=== PATIENT | male | born 1955 | race Two or more races ===

== ENCOUNTER 2017-01-10 17:58 | Emergency (ER) | payer OTHER, BC ==
[2017-01-10 18:15] VITALS: BP 120/68; PULSE 93; TEMP 99.7; BMI 26.6
[2017-01-10] MEDS ORDERED: LEVOFLOXACIN 500 MG TABLET (FP) PO ONE (19:48)
--- NOTE | 2017-01-10 19:48 | PDOC ---
History of Present Illness - General History Source: Patient Exam Limitations: No Limitations - History of Present Illness Initial Comments: 01/10/17 19:49 The patient is a 61 year old male with a significant past medical history of hypertension and GERD, who presents to the ER with a blocked suprapubic catheter since this morning. Patient states he has a suprapubic catheter on a 16 inch macdonald. He noticed the catheter was clogged today and he began to release brown urine from his urethra. Denies any associated pain Denies dysuria, hematuria Denies fever, chills, cough Denies weakness or numbness in the lower extremities Urologist: Dr. Solo Beaver [phone] <Hanny Campos - Last Filed: 01/10/17 19:48> - General History Source: Patient <HenrikCarlos Eduardo gtz - Last Filed: 01/10/17 19:52> - General Chief Complaint: Urinary Catheter Problem Stated Complaint: URINARY CATHATER PROBLEM Time Seen by Provider: 01/10/17 19:48 Past History <Hanny Campos - Last Filed: 01/10/17 19:48> - Past Medical History Anemia: No Asthma: No Cancer: No Cardiac Disorders: No CVA: No COPD: No CHF: No Dementia: No Diabetes: Yes GI Disorders: Yes (GASTRIC REFLUX) Disorders: Yes HTN: Yes Hypercholesterolemia: No Liver Disease: No Seizures: Yes Thyroid Disease: No - Surgical History Lung Surgery: Yes (B/L LUNG.) - Immunization History Immunization Up to Date: Yes - Psycho/Social/Smoking Cessation Hx Anxiety: No Suicidal Ideation: No Smoking Status: No Smoking History: Former smoker Have you smoked in the past 12 months: Yes Number of Cigarettes Smoked Daily: 0 If you are a former smoker, when did you quit?: 22yrs Information on smoking cessation initiated: No Hx Alcohol Use: No Drug/Substance Use Hx: No Substance Use Type: None Hx Substance Use Treatment: No <Carlos Eduardo Martinez - Last Filed: 01/10/17 19:52> - Past Medical History Allergies/Adverse Reactions: Allergies Allergy/AdvReac Type Severity Reaction Status Date / Time No Known Allergies Allergy Verified 01/10/17 18:00 Home Medications: Ambulatory Orders Levofloxacin [Levaquin -] 500 mg PO DAILY #7 tablet 01/10/17 Review of Systems - Review of Systems Able to Perform ROS?: Yes Comments:: 01/10/17 19:49 CONSTITUTIONAL: Absent: fever, no chills, no fatigue EYES: Absent: visual changes ENT: Absent: ear pain, no sore throat CARDIOVASCULAR: Absent: chest pain, no palpitations RESPIRATORY: Absent: cough, no SOB GI: Absent: abdominal pain, no nausea, no vomiting, no constipation, no diarrhea GENITOURINARY: Present: (+) clogged suprapubic catheter with accompanied brown urine Absent: dysuria, no frequency, no hematuria MUSCULOSKELETAL: Absent: back pain, no arthralgia, no myalgia SKIN: Absent: rash NEURO: Absent: headache <Uts,Hanny - Last Filed: 01/10/17 19:48> *Physical Exam - Vital Signs Last Vital Signs Temp Pulse Resp BP Pulse Ox 99.7 F H 93 H 18 120/68 97 01/10/17 18:01 01/10/17 18:01 01/10/17 18:01/10/17 18:01/10/17 18:01 - Physical Exam Comments: 01/10/17 19:49 GENERAL: Well-appearing, well-nourished. No apparent distress. HEENT: Normocephalic, atraumatic. PERRL, EOM intact. CARDIOVASCULAR: Normal S1, S2. Regular rate and rhythm. PULMONARY: Clear to auscultation bilaterally. ABDOMEN: Suprapubic wound site. No erythema, no discharge, nontender. Catheter in place. Connected to leg bag, which currently has 150 cc of malodorous dark brown urine. Soft, non-distended, non-tender. EXTREMITIES: Normal ROM in all four extremities. No gross deformities. SKIN: Warm, dry. No rash NEUROLOGICAL: No focal neurological deficits. <Uts,Hanny - Last Filed: 01/10/17 19:48> - Vital Signs Last Vital Signs Temp Pulse Resp BP Pulse Ox 99.7 F H 93 H 18 120/68 97 01/10/17 18:01 01/10/17 18:01 01/10/17 18:01 01/10/17 18:01 01/10/17 18:01 <Carlos Eduardo Martinez - Last Filed: 01/10/17 19:52> Medical Decision Making - Medical Decision Making 01/10/17 19:50 16 vietnamese macdonald catheter replaced into suprapubic wound site without complication. Cloudy urine draining from catheter. Will cover with PO antibiotic and prescription will be transmitted to patient pharmacy <Hanny Campos - Last Filed: 01/10/17 19:48> - Medical Decision Making 01/10/17 19:52 Dr. Martinez: The scribe's documentation has been prepared under my direction and personally reviewed by me in its entirery. I confirm that the note above accurately reflects all work, treatment, procedures, and medical decision making performed by me. <Carlos Eduardo Martinez - Last Filed: 01/10/17 19:52> *DC/Admit/Observation/Transfer - Attestations Scribe Attestion: 01/10/17 19:50 Documentation prepared by Hanny Campos, acting as medical office manager for Carlos Eduardo Martinez DO. <Hanny Campos - Last Filed: 01/10/17 19:48> - Discharge Dispostion Admit: No <Carlos Eduardo Martinez - Last Filed: 01/10/17 19:52> Diagnosis at time of Disposition: Macdonald catheter problem Qualifiers: Encounter type: initial encounter Qualified Code(s): T83.9XXA - Unspecified complication of genitourinary prosthetic device, implant and graft, initial encounter - Discharge Dispostion Disposition: HOME Condition at time of disposition: Stable - Prescriptions Prescriptions: Levofloxacin [Levaquin -] 500 mg PO DAILY #7 tablet - Referrals Referrals: Zara Nath MD [Primary Care Provider] - - Patient Instructions Printed Discharge Instructions: How to Care for a Suprapubic Catheter
[2017-01-10] MEDS ORDERED: LEVOFLOXACIN 500 MG TABLET (FP) ONE (19:58)
== END 2017-01-10 20:09 | disposition home or self-care (01) ==
LOC: JER 17:58
PROC: 0T2BX0Z Change Drainage Device in Bladder, External Approach (ICD-10-PCS; principal; 2017-01-10)
DX: T83.090A Other mechanical complication of cystostomy catheter, initial encounter (principal); Y83.8 Other surgical procedures as the cause of abnormal reaction of the patient, or of later complication, without mention of misadventure at the time of the procedure; Y92.89 Other specified places as the place of occurrence of the external cause; I10 Essential (primary) hypertension; E11.9 Type 2 diabetes mellitus without complications; Z79.84 Long term (current) use of oral hypoglycemic drugs; G40.909 Epilepsy, unspecified, not intractable, without status epilepticus
CPT/HCPCS: 99282-25

== ENCOUNTER 2017-04-26 17:29 | Emergency (ER) | payer OTHER, BC ==
[2017-04-26 17:45] VITALS: BP 122/71; PULSE 68; TEMP 98.4; BMI 25.7
[2017-04-26 19:00] LABS: URINE APPEARANCE CLEAR; URINE BILIRUBIN NEGATIVE (NEGATIVE); URINE BLOOD 3+ (NEGATIVE); URINE COLOR STRAW; URINE GLUCOSE (UA) NEGATIVE (NEGATIVE); URINE KETONE NEGATIVE (NEGATIVE); URINE NITRITE NEGATIVE (NEGATIVE); URINE PROTEIN NEGATIVE (NEGATIVE); URINE UROBILINOGEN NEGATIVE mg/dL (0.2-1.0)
[2017-04-26 19:02] LABS: URINE LEUK ESTERASE 1+ (NEGATIVE)
--- NOTE | 2017-04-26 19:10 | PDOC ---
Attending Attestation - Resident Resident Name: SahniCt - ED Attending Attestation I have performed the following: I have examined & evaluated the patient, The case was reviewed & discussed with the resident, I agree w/resident's findings & plan, Exceptions are as noted - HPI HPI: 61 yo M history paraplegia, chronic suprapubic catheter presents with brown, cloudy discharge from the catheter. The last time this happened, the catheter had to be changed, then his symptoms improved. He denies pain, but states he cannot feel pain due to his injuries, and does not know when he has an infection unless he gets a fever. Denies fever, vomiting. - Physicial Exam PE: GENERAL: Awake, alert, and fully oriented, in no acute distress HEAD: No signs of trauma EYES: PERRLA, EOMI, sclera anicteric, conjunctiva clear ENT: Auricles normal inspection, hearing grossly normal, nares patent, oropharynx clear without exudates. Moist mucosa NECK: Normal ROM, supple, no lymphadenopathy, JVD, or masses LUNGS: Breath sounds equal, clear to auscultation bilaterally. No wheezes, and no crackles HEART: Regular rate and rhythm, normal S1 and S2, no murmurs, rubs or gallops ABDOMEN: Soft, nontender, normoactive bowel sounds. No guarding, no rebound. No masses. +Suprapubic catheter with clean site. EXTREMITIES: Bilateral upper extremities with normal range of motion, no edema. No clubbing or cyanosis. No cords, erythema, or tenderness. Lower limbs with absent motor function/paraplegic. NEUROLOGICAL: Cranial nerves II through XII grossly intact. Normal speech. + Paraplegia. No sensation below the chest. SKIN: Warm, Dry, normal turgor, no rashes or lesions noted. - Medical Decision Making Chart reviewed, patient with prior similar symptoms. Catheter was changed in ED , with clear light yellow urine in the bag afterwards. Site with no signs of infection. UA reviewed, 9 WBCs, but no LE/nitrites. Will not treat, will await UCx, as I suspect patient is colonized. Stable for DC home.
--- NOTE | 2017-04-26 19:14 | PDOC ---
History of Present Illness - General Chief Complaint: Hematuria Stated Complaint: CATHETER PROBLEM Time Seen by Provider: 04/26/17 17:55 History Source: Patient Exam Limitations: No Limitations - History of Present Illness Initial Comments: 61yo M with PMH of paralysis below level T6, dm, htn, presents c/o hematuria in suprapubic macdonald catheter. Pt noticed red blood in catheter this morning prompting him to come to the ER. Pt's at bedside. No associated pain. Pt does take Xarelto. Pt was here in January for similar complaint, which was resolved by changing the suprapubic macdonald. 04/26/17 20:19 Associated Symptoms: denies: chest pain, cough, diaphoresis, fever/chills, headaches, nausea/vomiting, rash, shortness of breath, syncope Past History - Past Medical History Allergies/Adverse Reactions: Allergies Allergy/AdvReac Type Severity Reaction Status Date / Time No Known Allergies Allergy Verified 04/26/17 17:41 Home Medications: Ambulatory Orders Alendronate Sodium [Binosto] 70 mg PO DAILY 01/10/17 Ascorbate Calcium [Vitamin C] 500 mg PO DAILY 01/10/17 Baclofen 10 mg PO BID 01/10/17 Bisacodyl [Gentle Laxative] 5 mg PO DAILY 01/10/17 Duloxetine HCl 60 mg PO DAILY 01/10/17 Famotidine [Pepcid -] 40 mg PO DAILY 01/10/17 Fentanyl 1 each TD DAILY 01/10/17 Levothyroxine [Synthroid -] 75 mcg PO DAILY 01/10/17 Metformin HCl [Metformin HCl ER] 500 mg PO DAILY 01/10/17 Multivit-Min/FA/Lycopen/Lutein [Centrum Silver Tablet] 1 each PO DAILY 01/10/17 Naloxegol Oxalate [Movantik] 25 mg PO DAILY 01/10/17 Pregabalin [Lyrica -] 75 mg PO BID 01/10/17 Rivaroxaban [Xarelto -] 20 mg PO DAILY 01/10/17 Anemia: No Asthma: No Cancer: No Cardiac Disorders: No CVA: No COPD: No CHF: No Dementia: No Diabetes: Yes GI Disorders: Yes (GASTRIC REFLUX) Disorders: Yes HTN: Yes Hypercholesterolemia: No Liver Disease: No Thyroid Disease: No - Surgical History Lung Surgery: Yes (B/L LUNG.) Other Surgical History: benign bladder tumor removal raysa placed in back after work accident in 201304/26/17 20:24 - Immunization History Immunization Up to Date: Yes - Psycho/Social/Smoking Cessation Hx Anxiety: No Suicidal Ideation: No Smoking Status: No Smoking History: Former smoker Have you smoked in the past 12 months: Yes Number of Cigarettes Smoked Daily: 0 If you are a former smoker, when did you quit?: 22yrs Information on smoking cessation initiated: No Hx Alcohol Use: No Drug/Substance Use Hx: No Substance Use Type: None Hx Substance Use Treatment: No Review of Systems - Review of Systems Able to Perform ROS?: Yes Is the patient limited Amharic proficient: No Constitutional: No: Chills, Diaphoresis, Fever HEENTM: No: Recent change in vision, Ear Pain, Nose Pain, Throat Pain Respiratory: No: Cough, Shortness of Breath, Stridor, Wheezing, Hemoptysis Cardiac (ROS): No: Chest Pain, Edema, Irregular Heart Rate, Lightheadedness, Palpitations, Syncope, Chest Tightness ABD/GI: No: Abdominal Distended, Constipated, Diarrhea, Nausea, Rectal Bleeding , Vomiting : Yes: Hematuria Integumentary: No: Bruising, Erythema, Lesions Neurological: Yes: Numbness, Paresthesia, Pre-Existing Deficit. No: Headache, Seizure *Physical Exam - Vital Signs Last Vital Signs Temp Pulse Resp BP Pulse Ox 98.4 F 68 19 122/71 95 04/26/17 17:41 04/26/17 17:41 04/26/17 17:41 04/26/17 17:41 04/26/17 17:41 - Physical Exam General Appearance: Yes: Nourished, Appropriately Dressed. No: Apparent Distress HEENT: positive: EOMI, Normal Voice, Other (moist mucous membranes). negative: Pale Conjunctivae, Scleral Icterus (R), Scleral Icterus (L), Nasal Congestion, Rhinorrhea Neck: positive: Trachea midline, Supple Respiratory/Chest: positive: Lungs Clear, Normal Breath Sounds. negative: Respiratory Distress, Accessory Muscle Use Cardiovascular: positive: Regular Rhythm, Regular Rate, S1, S2. negative: Murmur Gastrointestinal/Abdominal: positive: Soft. negative: Distended Extremity: positive: Normal Inspection Integumentary: positive: Normal Color, Dry, Warm Neurologic: positive: Fully Oriented, Alert, Normal Mood/Affect, Normal Response , Motor Strength 5/5 (above level T6) ED Treatment Course - ADDITIONAL ORDERS Additional order review: Laboratory Results 04/26/17 18:50 Urine Color Straw Urine Appearance Clear Urine pH 6.0 Urine Protein Negative Urine Glucose (UA) Negative Urine Ketones Negative Urine Blood 3+ H Urine Nitrite Negative Urine Bilirubin Negative Urine Urobilinogen Negative Medical Decision Making - Medical Decision Making 61yo M with PMH of paralysis below level T6, dm, htn, presents c/o hematuria in suprapubic macdonald. Pt is s/p work-related accident in 2013 resulting in paralysis below level T6 and chronic suprapubic macdonald. Pt was here in January for similar complaints. Hematuria resolved after suprapubic macdonald was replaced. Pt suspects macdonald is now clogged, like last time. Pt requests referral for new Urologist. UA -> (-) for UTI, +3 blood, WBC 9 urine culture suprapubic macdonald replaced by nsg -> clear urine draining in macdonald contact information for 2 Urology offices provided Pt can go home. 04/26/17 20:30 *DC/Admit/Observation/Transfer Diagnosis at time of Disposition: Hematuria, Obstructed Macdonald catheter - Discharge Dispostion Disposition: HOME Condition at time of disposition: Improved Admit: No - Referrals Referrals: Zara Nath MD [Primary Care Provider] - Fadi Ortiz MD [Staff Physician] - - Patient Instructions Printed Discharge Instructions: How to Care for a Suprapubic Catheter Additional Instructions: Please follow-up with your Primary Care Doctor and a Urologist within the next week. Please return to the hospital if persistent hematuria is noted, or if symptoms of infection develop such as fever, chills, sweating, shortness of breath.
[2017-04-26 19:31] LABS: URINE BACTERIA FEW /hpf (NONE SEEN); URINE RBC <1 /hpf (0-3); URINE WBC 9 /hpf (3-5)
== END 2017-04-26 20:10 | disposition home or self-care (01) ==
LOC: JER 17:29
PROC: 0T2BX0Z Change Drainage Device in Bladder, External Approach (ICD-10-PCS; principal; 2017-04-26)
DX: T83.098A Other mechanical complication of other urinary catheter, initial encounter (principal); I10 Essential (primary) hypertension; E11.9 Type 2 diabetes mellitus without complications; Z79.84 Long term (current) use of oral hypoglycemic drugs; E03.9 Hypothyroidism, unspecified; G82.21 Paraplegia, complete; S24.152S Other incomplete lesion at T2-T6 level of thoracic spinal cord, sequela; X58.XXXS Exposure to other specified factors, sequela
CPT/HCPCS: 81003; 81015; 87086; 87186; 99281-25

== ENCOUNTER 2017-10-21 11:02 | Emergency (ER) | payer BC, OTHER ==
[2017-10-21 11:14] VITALS: BMI 27.4
[2017-10-21] MEDS ORDERED: SODIUM CHLORIDE 1,000 ML IV STA (12:09)
[2017-10-21 12:40] LABS: EOS % 2.3 % (0-4.5); HEMATOCRIT 35.1 % (35.4-49); HEMOGLOBIN 11.5 GM/dL (11.7-16.9); LYMPH % 20.6 % (8-40); MCH 23.2 pg (25.7-33.7); MCHC 32.8 g/dl (32.0-35.9); MEAN CELL VOLUME 70.8 fl (80-96); MEAN PLT VOLUME 9.5 fl (7.5-11.1); MONO % 10.1 % (3.8-10.2); PLATELET COUNT 230 K/MM3 (134-434); RBC 4.96 M/mm3 (4.00-5.60); RDW 15.9 % (11.9-15.9); VENOUS PC02 55.5 mmHg (38-52); VENOUS PH 7.35 (7.32-7.42); WHITE BLOOD COUNT 7.2 K/mm3 (4.0-10.0)
[2017-10-21 12:41] LABS: VENOUS PO2 22.9 mmHg (28-48)
[2017-10-21 12:55] LABS: URINE APPEARANCE SL CLOUDY; URINE BILIRUBIN 1+ (NEGATIVE); URINE BLOOD 1+ (NEGATIVE); URINE GLUCOSE (UA) NEGATIVE (NEGATIVE); URINE KETONE TRACE (NEGATIVE)
[2017-10-21 12:57] LABS: URINE COLOR YELLOW; URINE LEUK ESTERASE 2+ (NEGATIVE); URINE NITRITE POSITIVE (NEGATIVE); URINE PROTEIN 2+ (NEGATIVE)
[2017-10-21 13:04] LABS: ALBUMIN 2.7 g/dl (3.4-5.0); ALK PHOS 63 U/L (45-117); ANION GAP 10 (8-16); BILIRUBIN,TOTAL 0.5 mg/dL (0.2-1.0); BLOOD UREA NITROGEN 6 mg/dL (7-18); CALCIUM 8.5 mg/dL (8.5-10.1); CHLORIDE 101 mmol/L (98-107); CO2 28 mmol/L (21-32); CREATININE 0.5 mg/dL (0.7-1.3); GLUCOSE,RANDOM 197 mg/dL (74-106); SGOT/AST 21 U/L (15-37); SGPT/ALT 31 U/L (12-78); SODIUM 139 mmol/L (136-145); TOT PROT 6.5 g/dl (6.4-8.2)
[2017-10-21 13:05] LABS: INR 1.74 (0.82-1.09); PROTHROMBIN TIME (PATIENT) 19.7 SEC (9.98-11.88)
[2017-10-21 13:07] LABS: ACTIVATED PTT 62.4 SECONDS (26.9-34.4)
[2017-10-21 13:33] LABS: EPI CELLS FEW /HPF (FEW)
[2017-10-21 13:34] LABS: URINE BACTERIA MANY /hpf (NONE SEEN)
--- NOTE | 2017-10-21 14:26 | PDOC ---
History of Present Illness <Blayne Carroll - Last Filed: 10/21/17 15:50> - History of Present Illness Initial Comments: 10/21/17 14:21 "The patient is a 62 year old male with a significant PMH of paralysis below T6 spine (c/b neurogenic bladder s/p suprapubic catheter), diabetes, HTN, and GERD who presents to the emergency department for evaluation of white discharge from suprapubic catheter insertion site. The patient notes that he had his catheter changed about 6 days ago by his urologist. Since then, he noticed oozing around the suprapubic catheter insertion site. He also notes occasional leakage of urine from his penis and a sensation that his abdomen is "full". Pt denies any abdominal pain. Denies F/C. Denies constipation, denies N/V. The patient denies chest pain, shortness of breath, headache and dizziness. Denies fevers, chills, nausea, vomit, diarrhea, and constipation. Allergies: NKA Past surgical history: Bilateral lung surgery. Social history: Former smoker (quit 22 yrs. ago). No reported alcohol or drug use. Urologist: Dr. Solo Beaver (in [place]) " <Tj Mckeon - Last Filed: 10/25/17 00:25> - General Chief Complaint: Urinary Catheter Problem Stated Complaint: URINARY PROBLEM Time Seen by Provider: 10/21/17 11:22 Past History <Blayne Carroll - Last Filed: 10/21/17 15:50> - Past Medical History Anemia: No Asthma: No Cancer: No Cardiac Disorders: No CVA: No COPD: No CHF: No Dementia: No Diabetes: Yes GI Disorders: Yes (GASTRIC REFLUX) Disorders: Yes (incontinent, chronic macdonald) HTN: Yes Hypercholesterolemia: No Liver Disease: No Seizures: Yes Thyroid Disease: No - Surgical History Lung Surgery: Yes (B/L LUNG.) - Immunization History Immunization Up to Date: Yes - Suicide/Smoking/Psychosocial Hx Smoking Status: No Smoking History: Former smoker Have you smoked in the past 12 months: Yes Number of Cigarettes Smoked Daily: 0 If you are a former smoker, when did you quit?: 22yrs Information on smoking cessation initiated: No Hx Alcohol Use: No Drug/Substance Use Hx: No Substance Use Type: None Hx Substance Use Treatment: No <Tj Mckeon - Last Filed: 10/25/17 00:25> - Past Medical History Allergies/Adverse Reactions: Allergies Allergy/AdvReac Type Severity Reaction Status Date / Time No Known Allergies Allergy Verified 10/21/17 11:09 Home Medications: Ambulatory Orders Alendronate Sodium [Binosto] 70 mg PO SA 01/10/17 Ascorbate Calcium [Vitamin C] 500 mg PO DAILY 01/10/17 Baclofen 10 mg PO BID 01/10/17 Bisacodyl [Gentle Laxative] 5 mg PO DAILY PRN 01/10/17 Duloxetine HCl 60 mg PO DAILY 01/10/17 Famotidine [Pepcid -] 40 mg PO DAILY 01/10/17 Fentanyl 1 each TD DAILY 01/10/17 Levothyroxine [Synthroid -] 75 mcg PO DAILY 01/10/17 Metformin HCl [Metformin HCl ER] 500 mg PO DAILY 01/10/17 Multivit-Min/FA/Lycopen/Lutein [Centrum Silver Tablet] 1 each PO DAILY 01/10/17 Naloxegol Oxalate [Movantik] 25 mg PO DAILY 01/10/17 Pregabalin [Lyrica -] 75 mg PO TID 01/10/17 Rivaroxaban [Xarelto -] 20 mg PO DAILY 01/10/17 Nitrofurantoin Monohyd/M-Cryst [Macrobid -] 100 mg PO BID #14 capsule 10/21/17 Review of Systems - Review of Systems Comments:: 10/21/17 14:26 "GENERAL/CONSTITUTIONAL: No fever or chills. No weakness. HEAD, EYES, EARS, NOSE AND THROAT: No change in vision. No ear pain or discharge. No sore throat. CARDIOVASCULAR: No chest pain or shortness of breath. RESPIRATORY: No cough, wheezing, or hemoptysis. GASTROINTESTINAL: No nausea, vomiting, diarrhea or constipation. GENITOURINARY: (+) white discharge from suprapubic catheter insertion site. No dysuria, frequency, or change in urination. MUSCULOSKELETAL: No joint or muscle swelling or pain. No neck or back pain. SKIN: No rash NEUROLOGIC: No headache, vertigo, loss of consciousness, or change in strength/ sensation. ENDOCRINE: No increased thirst. No abnormal weight change. HEMATOLOGIC/LYMPHATIC: No anemia, easy bleeding, or history of blood clots. ALLERGIC/IMMUNOLOGIC: No hives or skin allergy. " <Tj Mckeon - Last Filed: 10/25/17 00:25> *Physical Exam - Vital Signs Last Vital Signs Temp Pulse Resp BP Pulse Ox 98 F 113 H 19 101/57 96 10/21/17 11:09 10/21/17 11:09 10/21/17 11:09 10/21/17 11:09 10/21/17 11:09 <Blayne Carroll - Last Filed: 10/21/17 15:50> - Vital Signs Last Vital Signs Temp Pulse Resp BP Pulse Ox 98 F 113 H 19 101/57 96 10/21/17 11:09 10/21/17 11:09 10/21/17 11:09 10/21/17 11:09 10/21/17 11:09 - Physical Exam Comments: 10/21/17 14:26 "GENERAL: Awake, alert, and fully oriented, in no acute distress HEAD: No signs of trauma EYES: PERRLA, EOMI, sclera anicteric, conjunctiva clear ENT: Auricles normal inspection, hearing grossly normal, nares patent, oropharynx clear without exudates. Moist mucosa NECK: Nontender, no stepoffs, Normal ROM, supple, no lymphadenopathy, JVD, or masses LUNGS: Breath sounds equal, clear to auscultation bilaterally. No wheezes, and no crackles HEART: Regular rate and rhythm, normal S1 and S2, no murmurs, rubs or gallops ABDOMEN: + Suprapubic cath in place with purulent drainage from insertion site, no surrounding erythema, no fluctuance or induration, abdomen soft, nontender, normoactive bowel sounds. No guarding, no rebound. No masses EXTREMITIES: Normal range of motion, no edema. No clubbing or cyanosis. No cords , erythema, or tenderness NEUROLOGICAL: Cranial nerves II through XII intact. 5/5 strength and sensation in all extremities, Normal speech, normal gait, normal cerebellar function SKIN: Warm, Dry, normal turgor, no rashes or lesions noted. " <Tj Mckeon - Last Filed: 10/25/17 00:25> ED Treatment Course - LABORATORY CBC & Chemistry Diagram: 10/21/17 12:31 10/21/17 12:31 - ADDITIONAL ORDERS Additional order review: Laboratory Results 10/21/17 10/21/17 10/21/17 12:31 12:31 12:31 PT with INR INR PTT (Actin FS) VBG pH POC VBG pCO2 POC VBG pO2 Mixed VBG HCO3 Sodium 139 Potassium 4.0 Chloride 101 Carbon Dioxide 28 Anion Gap 10 BUN 6 L D Creatinine 0.5 L Creat Clearance w eGFR > 60 Random Glucose 197 H D Lactic Acid 1.1 Calcium 8.5 Total Bilirubin 0.5 D AST 21 D ALT 31 Alkaline Phosphatase 63 Troponin I < 0.02 Total Protein 6.5 Albumin 2.7 L Urine Color Urine Appearance Urine pH Ur Specific Mead Urine Protein Urine Glucose (UA) Urine Ketones Urine Blood Urine Nitrite Urine Bilirubin Urine Urobilinogen Ur Leukocyte Esterase Urine WBC (Auto) Urine RBC (Auto) Ur Epithelial Cells Urine Bacteria 10/21/17 10/21/17 10/21/17 12:31 12:31 12:31 PT with INR 19.70 H INR 1.74 H PTT (Actin FS) 62.4 H D VBG pH 7.35 POC VBG pCO2 55.5 H POC VBG pO2 22.9 L Mixed VBG HCO3 29.6 H Sodium Potassium Chloride Carbon Dioxide Anion Gap BUN Creatinine Creat Clearance w eGFR Random Glucose Lactic Acid Calcium Total Bilirubin AST ALT Alkaline Phosphatase Troponin I Total Protein Albumin Urine Color Yellow Urine Appearance Sl cloudy Urine pH 6.0 Ur Specific Mead 1.025 Urine Protein 2+ H Urine Glucose (UA) Negative Urine Ketones Trace H Urine Blood 1+ H Urine Nitrite Positive Urine Bilirubin 1+ H Urine Urobilinogen 1.0 Ur Leukocyte Esterase 2+ H Urine WBC (Auto) 5-10 Urine RBC (Auto) 0-2 Ur Epithelial Cells Few Urine Bacteria Many 10/21/17 12:31 RBC 4.96 MCV 70.8 L MCHC 32.8 RDW 15.9 D MPV 9.5 Neutrophils % 66.0 Lymphocytes % 20.6 D Monocytes % 10.1 Eosinophils % 2.3 Basophils % 1.0 - Medications Given in the ED: ED Medications Discontinued Medications Generic Name Dose Route Start Last Admin Trade Name Freq PRN Reason Stop Dose Admin Sodium Chloride 1,000 mls @ 1,000 mls/hr 10/21/17 12:09 10/21/17 12:30 Normal Saline - IV 10/21/17 13:08 1,000 mls/hr ASDIR STA Administration <Blayne Carroll - Last Filed: 10/21/17 15:50> - LABORATORY CBC & Chemistry Diagram: 10/21/17 12:31 10/21/17 12:31 - ADDITIONAL ORDERS Additional order review: Laboratory Results 10/21/17 10/21/17 10/21/17 12:31 12:31 12:31 PT with INR INR PTT (Actin FS) VBG pH POC VBG pCO2 POC VBG pO2 Mixed VBG HCO3 Sodium 139 Potassium 4.0 Chloride 101 Carbon Dioxide 28 Anion Gap 10 BUN 6 L D Creatinine 0.5 L Creat Clearance w eGFR > 60 Random Glucose 197 H D Lactic Acid 1.1 Calcium 8.5 Total Bilirubin 0.5 D AST 21 D ALT 31 Alkaline Phosphatase 63 Troponin I < 0.02 Total Protein 6.5 Albumin 2.7 L Urine Color Urine Appearance Urine pH Ur Specific Mead Urine Protein Urine Glucose (UA) Urine Ketones Urine Blood Urine Nitrite Urine Bilirubin Urine Urobilinogen Ur Leukocyte Esterase Urine WBC (Auto) Urine RBC (Auto) Ur Epithelial Cells Urine Bacteria 10/21/17 10/21/17 10/21/17 12:31 12:31 12:31 PT with INR 19.70 H INR 1.74 H PTT (Actin FS) 62.4 H D VBG pH 7.35 POC VBG pCO2 55.5 H POC VBG pO2 22.9 L Mixed VBG HCO3 29.6 H Sodium Potassium Chloride Carbon Dioxide Anion Gap BUN Creatinine Creat Clearance w eGFR Random Glucose Lactic Acid Calcium Total Bilirubin AST ALT Alkaline Phosphatase Troponin I Total Protein Albumin Urine Color Yellow Urine Appearance Sl cloudy Urine pH 6.0 Ur Specific Mead 1.025 Urine Protein 2+ H Urine Glucose (UA) Negative Urine Ketones Trace H Urine Blood 1+ H Urine Nitrite Positive Urine Bilirubin 1+ H Urine Urobilinogen 1.0 Ur Leukocyte Esterase 2+ H Urine WBC (Auto) 5-10 Urine RBC (Auto) 0-2 Ur Epithelial Cells Few Urine Bacteria Many 10/21/17 12:31 RBC 4.96 MCV 70.8 L MCHC 32.8 RDW 15.9 D MPV 9.5 Neutrophils % 66.0 Lymphocytes % 20.6 D Monocytes % 10.1 Eosinophils % 2.3 Basophils % 1.0 - RADIOLOGY Radiology Studies Ordered: Category Date Time Status ABDOMEN & PELVIS CT WITH CONTR [CT] Stat CT Scan 10/21/17 14:08 Ordered ABDOMEN [id number] [RAD] Stat Radiology 10/21/17 12:08 Taken CHEST X-RAY PORTABLE* [RAD] Stat Radiology 10/21/17 12:05 Completed KIDNEY / RENAL US [US] Stat Ultrasound 10/21/17 12:07 Ordered PELVIC / BLADDER US [US] Stat Ultrasound 10/21/17 12:07 Ordered - Medications Given in the ED: ED Medications Discontinued Medications Generic Name Dose Route Start Last Admin Trade Name [place] PRN Reason Stop Dose Admin Sodium Chloride 1,000 mls @ 1,000 mls/hr 10/21/17 12:09 10/21/17 12:30 Normal Saline - IV 10/21/17 13:08 1,000 mls/hr ASDIR STA Administration <Ou,Tj - Last Filed: 10/25/17 00:25> Medical Decision Making - Medical Decision Making 10/21/17 14:27 62 M with neurogenic bladder s/p suprapubic cath presenting to ED with 6 days of purulent drainage from cath insertion site. Pt with no infectious symptoms otherwise. Pt also complaining of urine leakage from penis and "fullness" of abdomen. Will evaluate for urinary retention, though suprapubic cath is draining freely in ER. - Labs, UA, UCx - Bladder/renal US - CT abdomen/pelvis with IV contrast to r/o abdominal wall abscess 10/21/17 17:50 CT with no evidence of abdominal wall infection. Possible cystitis. Bladder and renal US wnl, no hydronephrosis. Pt reassessed - catheter continues to drain clear yellow urine. Labs unremarkable. Given CT finding of perivesical fat stranding, will tx for cystitis. Based on prior cultures, pt has grown klebsiella and e coli, both sensitive to macrobid. Will DC with macrobid and instructions to f/u with urology. I discussed the physical exam findings, ancillary test results and final diagnoses with the patient. I answered all of the patient's questions. The patient was satisfied with the care received and felt comfortable with the discharge plan and treatment plan. The patient agrees to follow up with the primary care physician within 24-72 hours. <Ou,Tj - Last Filed: 10/25/17 00:25> *DC/Admit/Observation/Transfer - Attestations Scribe Attestion: 10/21/17 15:50 Documentation prepared by Blayne Carroll, acting as medical billing manager for Tj Mckeon MD. <Blayne Carroll - Last Filed: 10/21/17 15:50> - Attestations Physician Attestion: 10/21/17 17:53 I, Dr. Tj Mckeon MD, attest that this document has been prepared under my direction and personally reviewed by me in its entirety. I further attest, that it accurately reflects all work, treatment, procedures and medical decision -making performed by me. <Tj Mckeon - Last Filed: 10/25/17 00:25> Diagnosis at time of Disposition: Cystitis - Discharge Dispostion Disposition: HOME - Prescriptions Prescriptions: Nitrofurantoin Monohyd/M-Cryst [Macrobid -] 100 mg PO BID #14 capsule - Referrals Referrals: Griselda Jones MD [Primary Care Provider] - - Patient Instructions Printed Discharge Instructions: DI for Acute Cystitis Additional Instructions: Take the antibiotics as prescribed to treat your urine infection. If you experience fevers, foul smelling urine, clogged catheter, or any other concerning symptoms, return to the ER immediately. Otherwise, follow up with your urologist within 48 hours. - Post Discharge Activity
--- NOTE | 2017-10-21 15:48 | EKG ---
Test Reason : Blood Pressure : / mmHG Vent. Rate : 088 BPM Atrial Rate : 088 BPM P-R Int : 152 ms QRS Dur : 076 ms QT Int : 322 ms P-R-T Axes : 062 -56 028 degrees QTc Int : 389 ms NORMAL SINUS RHYTHM LEFT AXIS DEVIATION LOW VOLTAGE QRS INFERIOR INFARCT , AGE UNDETERMINED ABNORMAL ECG WHEN COMPARED WITH ECG OF 29-MAR-2015 18:44, NONSPECIFIC T WAVE ABNORMALITY NOW EVIDENT IN ANTEROLATERAL LEADS Confirmed by GREGORIO CORNELL MD ([id number]) on 10/21/2017 3:47:53 PM Referred By: Confirmed By:GREGORIO CORNELL MD
[2017-10-21] MEDS ORDERED: NITROFURANTOIN MACROCRYSTAL 50 MG CAPSULE (FP) PO SCH (18:00)
[2017-10-21 18:04] VITALS: BP 141/75; PULSE 53; TEMP 98.9
[2017-10-21] MEDS ORDERED: NITROFURANTOIN MACROCRYSTAL 50 MG CAPSULE (FP) ONE (18:07)
== END 2017-10-21 18:34 | disposition home or self-care (01) ==
LOC: JER 11:02
PROC: 3E0337Z Introduction of Electrolytic and Water Balance Substance into Peripheral Vein, Percutaneous Approach (ICD-10-PCS; principal; 2017-10-21)
DX: N30.00 Acute cystitis without hematuria (principal); I10 Essential (primary) hypertension; E11.9 Type 2 diabetes mellitus without complications; Z79.84 Long term (current) use of oral hypoglycemic drugs; K21.9 Gastro-esophageal reflux disease without esophagitis; G81.90 Hemiplegia, unspecified affecting unspecified side
CPT/HCPCS: 36415; 71045-TC-FY; 74021-TC-FY; 74177-TC; 76775-TC; 76856-TC; 80053; 81003; 81015; 82803; 83605; 84484; 85025; 85610; 85730; 87040; 87086; 87186; 93005; 93010; 99283-25; J7030

== ENCOUNTER 2024-01-30 08:55 | Inpatient (IN) | payer BC, OTHER ==
[2024-01-30 09:06] VITALS: BMI 27.4
[2024-01-30] MEDS ORDERED: PIPERACILLIN/TAZOB 4.5 GM 4.5 GM/100 ML BAG IVPB ONE (10:01)
[2024-01-30 10:04] LABS: BASO % 0.8 % (0-2.0); EOS % 2.1 % (0-4.5); HEMATOCRIT 34.3 % (35.4-49); HEMOGLOBIN 11.1 GM/dL (11.7-16.9); LYMPH % 25.8 % (8-40); MCH 23.1 pg (25.7-33.7); MCHC 32.3 g/dl (32.0-35.9); MEAN CELL VOLUME 71.4 fl (80-96); MONO % 9.5 % (3.8-10.2); NEUT % 61.8 % (42.8-82.8); PLATELET COUNT 410 10^3/uL (134-434); RDW 15.6 % (11.9-15.9); WHITE BLOOD COUNT 7.8 K/mm3 (4.0-10.0)
[2024-01-30 10:09] LABS: INR 2.27 (0.83-1.09); PROTHROMBIN TIME (PATIENT) 25.5 SEC (9.7-13.0)
[2024-01-30] MEDS: PIPERACILLIN/TAZOB 4.5 GM 4.5 GM in DEXTROSE 5%-WATER 100 ML IVPB ONE (10:10)
[2024-01-30 10:12] LABS: ACTIVATED PTT 105.1 SECONDS (25.2-36.5)
[2024-01-30 10:20] LABS: POTASSIUM 4.2 mmol/L (3.5-5.1)
[2024-01-30 10:22] LABS: BLOOD UREA NITROGEN 9.7 mg/dL (7-18)
[2024-01-30 10:26] LABS: CREATININE 0.5 mg/dL (0.55-1.3)
[2024-01-30 10:27] LABS: BILIRUBIN,TOTAL 0.5 mg/dL (0.2-1)
[2024-01-30 10:28] LABS: TOT PROT 6.9 g/dl (6.4-8.2)
[2024-01-30] MEDS ORDERED: VANCOMYCIN 1 GRAM (PRE-DOCKED) 1,000 MG/250 ML BAG IVPB ONE (12:15)
[2024-01-30] MEDS: VANCOMYCIN 1,000 MG in DEXTROSE 5%-WATER - 250 ML IVPB ONE (12:20)
[2024-01-30] MEDS: PIPERACILLIN/TAZOB 3.375 GM 3.375 GM in DEXTROSE 5%-WATER - 50 ML IVPB SCH (17:15)
[2024-01-31] MEDS ORDERED: PIPERACILLIN/TAZOBACTAM 3.375 GM VIAL IVPB ONE (00:54)
[2024-01-31] MEDS: LEVOTHYROXINE NA 50 MCG TABLET (FP) PO SCH (06:28)
[2024-01-31] MEDS ORDERED: LEVOTHYROXINE NA 75 MCG TABLET (FP) PO SCH (07:00)
[2024-01-31 10:06] LABS: BASO % 1.2 % (0-2.0); EOS % 2.4 % (0-4.5); HEMATOCRIT 34.4 % (35.4-49); HEMOGLOBIN 10.9 GM/dL (11.7-16.9); LYMPH % 26.6 % (8-40); MCH 22.8 pg (25.7-33.7); MCHC 31.7 g/dl (32.0-35.9); MEAN CELL VOLUME 71.8 fl (80-96); MEAN PLT VOLUME 8.2 fl (7.5-11.1); MONO % 8.7 % (3.8-10.2); NEUT % 61.1 % (42.8-82.8); PLATELET COUNT 388 10^3/uL (134-434); RBC 4.79 M/mm3 (4.00-5.60); RDW 15.2 % (11.9-15.9); WHITE BLOOD COUNT 7.7 K/mm3 (4.0-10.0)
[2024-01-31 10:11] LABS: INR 1.67 (0.83-1.09); PROTHROMBIN TIME (PATIENT) 18.6 SEC (9.7-13.0)
[2024-01-31] MEDS: METOCLOPRAMIDE HCL 10 MG TABLET (FP) PO SCH (10:13)
[2024-01-31] MEDS: BACLOFEN 10 MG TABLET (FP) PO SCH (10:14)
[2024-01-31] MEDS: DULoxetine HCL 30 MG CAPSULE.DR PO SCH (10:14)
[2024-01-31 10:25] LABS: POTASSIUM 4.8 mmol/L (3.5-5.1)
[2024-01-31 10:35] LABS: ALBUMIN 2.8 g/dl (3.4-5.0); CALCIUM 9.1 mg/dL (8.5-10.1)
[2024-01-31 10:36] LABS: BLOOD UREA NITROGEN 9.4 mg/dL (7-18)
[2024-01-31 10:38] LABS: CREATININE 0.7 mg/dL (0.55-1.3)
[2024-01-31 10:39] LABS: PHOSPHOROUS 3.8 mg/dL (2.5-4.9)
[2024-01-31 10:40] LABS: BILIRUBIN,TOTAL 0.7 mg/dL (0.2-1); TOT PROT 6.4 g/dl (6.4-8.2)
[2024-01-31] MEDS: INSULIN ASPART SLIDING SCALE (NOVOLOG) 1 VIAL SQ SCH (12:16)
[2024-02-01] MEDS: BISACODYL 5 MG TABLET.DR (FP) PO PRN (18:22)
[2024-02-02] MEDS ORDERED: ENOXAPARIN NA (PORCINE) 40 MG/0.4 ML DISP.SYRIN SQ SCH (10:00)
[2024-02-02] MEDS: IRON SUCROSE INJECTION 200 MG in SODIUM CHLORIDE 100 ML IVPB ONE (10:06)
[2024-02-02 10:51] LABS: INR 1.55 (0.83-1.09); PROTHROMBIN TIME (PATIENT) 17.3 SEC (9.7-13.0)
[2024-02-03] MEDS ORDERED: LIDOCAINE HCL 1%, 10 MG/ML (20ML VIAL) ONE (07:09)
[2024-02-03] MEDS ORDERED: DEXAMETHASONE SOD PHOSPHATE 4 MG/1 ML VIAL ONE (07:09)
[2024-02-03 07:10] LABS: INR 1.52 (0.83-1.09); PROTHROMBIN TIME (PATIENT) 17.3 SEC (9.7-13.0)
[2024-02-03] MEDS ORDERED: BUPIVACAINE HCL/PF 0.5% (5MG/ML) 10 ML VIAL ONE (07:10)
[2024-02-03] MEDS ORDERED: THROMBIN (BOVINE) 5,000 UNIT VIAL TP ONE (07:30)
[2024-02-03 07:34] LABS: INR 1.5 (0.83-1.09); PROTHROMBIN TIME (PATIENT) 17.1 SEC (9.7-13.0)
[2024-02-03] MEDS ORDERED: MIDAZOLAM HCL 2 MG/2 ML SINGLE DOSE VIAL ONE (07:40)
[2024-02-03] MEDS: LIDOCAINE 1%/EPI 1:100000 (20 ML MULTI DOSE VIAL) IJ ONE (07:47)
[2024-02-03] MEDS: BUPIVACAINE HCL/PF 0.5% (5MG/ML) 10 ML VIAL IJ ONE (07:47)
[2024-02-03] MEDS ORDERED: LIDOCAINE 1%/EPI 1:100000 (20 ML MULTI DOSE VIAL) ONE (07:49)
[2024-02-03] MEDS ORDERED: GENTAMICIN SO4 80 MG/2 ML VIAL ONE (08:09)
[2024-02-03] MEDS ORDERED: VANCOMYCIN 1,000 MG VIAL (RESTRICTED TO ID ONLY) ONE (08:09)
[2024-02-03] MEDS: GENTAMICIN SO4 80 MG/2 ML VIAL IVPB ONE (08:20)
[2024-02-03] MEDS ORDERED: ONDANSETRON 4 MG/2 ML VIAL IVPUSH PRN ×2 (08:53→09:01)
[2024-02-03] MEDS ORDERED: LACTATED RINGERS SOLUTION 1,000 ML IV SCH (09:01)
[2024-02-03] MEDS ORDERED: BISACODYL 5 MG TABLET.DR (FP) PO PRN (09:01)
[2024-02-03 10:13] LABS: BASO % 0.9 % (0-2.0); EOS % 1.7 % (0-4.5); HEMATOCRIT 36.5 % (35.4-49); HEMOGLOBIN 11.7 GM/dL (11.7-16.9); LYMPH % 24.6 % (8-40); MCHC 32.1 g/dl (32.0-35.9); MEAN CELL VOLUME 71.6 fl (80-96); MEAN PLT VOLUME 8.5 fl (7.5-11.1); MONO % 8.6 % (3.8-10.2); NEUT % 64.2 % (42.8-82.8); PLATELET COUNT 369 10^3/uL (134-434); RDW 15.5 % (11.9-15.9); WHITE BLOOD COUNT 8.5 K/mm3 (4.0-10.0)
[2024-02-03] MEDS: BACLOFEN 10 MG TABLET (FP) PO SCH (10:20)
[2024-02-03] MEDS: DULoxetine HCL 30 MG CAPSULE.DR PO SCH (10:20)
[2024-02-03] MEDS: INSULIN ASPART SLIDING SCALE (NOVOLOG) 1 VIAL SQ SCH (12:07)
[2024-02-03] MEDS: METOCLOPRAMIDE HCL 10 MG TABLET (FP) PO SCH (12:16)
[2024-02-03] MEDS: LACTATED RINGERS SOLUTION 1,000 ML IV SCH (13:52)
[2024-02-03] MEDS: CEFTRIAXONE 2 GM in DEXTROSE 5%-WATER 100 ML IVPB SCH ×2 (15:44→16:20)
[2024-02-04] MEDS: LEVOTHYROXINE NA 50 MCG TABLET (FP) PO SCH (06:19)
[2024-02-05 09:15] LABS: BASO % 0.9 % (0-2.0); EOS % 1.7 % (0-4.5); HEMATOCRIT 35.2 % (35.4-49); HEMOGLOBIN 11.3 GM/dL (11.7-16.9); LYMPH % 19.3 % (8-40); MEAN CELL VOLUME 71.9 fl (80-96); MEAN PLT VOLUME 8.9 fl (7.5-11.1); MONO % 10.2 % (3.8-10.2); NEUT % 67.9 % (42.8-82.8); PLATELET COUNT 341 10^3/uL (134-434); RDW 15.7 % (11.9-15.9); WHITE BLOOD COUNT 9.1 K/mm3 (4.0-10.0)
[2024-02-05 09:17] LABS: POTASSIUM 4.5 mmol/L (3.5-5.1)
[2024-02-05 09:21] LABS: CALCIUM 9.5 mg/dL (8.5-10.1)
[2024-02-05 09:22] LABS: ALBUMIN 3.2 g/dl (3.4-5.0); BLOOD UREA NITROGEN 13.3 mg/dL (7-18)
[2024-02-05 09:25] LABS: CREATININE 0.6 mg/dL (0.55-1.3)
[2024-02-05 09:27] LABS: BILIRUBIN,TOTAL 0.6 mg/dL (0.2-1); TOT PROT 6.9 g/dl (6.4-8.2)
[2024-02-05] MEDS: POLYETHYLENE GLYCOL (HEALTHYLAX) 3350 17 GM PACKET PO SCH (12:12)
[2024-02-06] MEDS: PIPERACILLIN/TAZOB 3.375 GM 3.375 GM in DEXTROSE 5%-WATER - 50 ML IVPB SCH (13:46)
[2024-02-06 15:22] VITALS: RESP 18
[2024-02-07 15:36] VITALS: PULSE 84
[2024-02-07 15:37] VITALS: BP 112/62; TEMP 98.3
[2024-02-07] MEDS ORDERED: RIVAROXABAN 20 MG TABLET PO SCH (18:00)
== END 2024-02-07 17:11 | disposition home health service (06) | DRG 617 ==
LOC: JER 08:55 → JERBED 13:07 → J5S 15:13
PROVIDERS: ADMIT Internal Medicine; ATTEND Internal Medicine
PROC: 0Y6M0ZF Detachment at Right Foot, Partial 5th Ray, Open Approach (ICD-10-PCS; 2024-02-03)
PROC: 0Y6X0Z0 Detachment at Right 5th Toe, Complete, Open Approach (ICD-10-PCS; 2024-02-03)
PROC: 3E0V329 Introduction of Other Anti-infective into Bones, Percutaneous Approach (ICD-10-PCS; 2024-02-03)
PROC: 02HV33Z Insertion of Infusion Device into Superior Vena Cava, Percutaneous Approach (ICD-10-PCS; principal; 2024-02-07)
PROC: B518ZZA Fluoroscopy of Superior Vena Cava, Guidance (ICD-10-PCS; 2024-02-07)
DX: E11.69 Type 2 diabetes mellitus with other specified complication (principal); G82.20 Paraplegia, unspecified; M86.171 Other acute osteomyelitis, right ankle and foot; B96.5 Pseudomonas (aeruginosa) (mallei) (pseudomallei) as the cause of diseases classified elsewhere; K21.9 Gastro-esophageal reflux disease without esophagitis; N31.9 Neuromuscular dysfunction of bladder, unspecified; E03.9 Hypothyroidism, unspecified; Z79.01 Long term (current) use of anticoagulants; Z51.81 Encounter for therapeutic drug level monitoring
CPT/HCPCS: 36415; 36569; 73610-TC-RT-FY; 73630-TC-RT-FY; 80053; 82728; 82962; 83540; 83550; 83735; 84100; 84443; 85025; 85610; 85730; 86850; 86900; 86901; 87040; 87070; 87075; 87186; 87205; 88305-TC; 88311-TC; 93005; 93010; 94760; 99285-25; G0463-25; J0475; J1756